=== PATIENT | female | born 1955 | race Caucasian/White ===

== ENCOUNTER 2017-05-25 12:27 | Outpatient (CLI) | payer OTHER | END 2017-05-25 17:00 | disposition home or self-care (01) | LOC: MAMO-SONO 12:27 | DX: Z12.31 Encounter for screening mammogram for malignant neoplasm of breast (principal); N60.19 Diffuse cystic mastopathy of unspecified breast ==

== ENCOUNTER 2018-05-24 12:04 | Outpatient (CLI) | payer OTHER | END 2018-05-24 12:11 | disposition home or self-care (01) | LOC: LAB 12:04 | DX: D64.0 Hereditary sideroblastic anemia (principal) ==

== ENCOUNTER 2019-04-24 13:07 | Outpatient (CLI) | payer OTHER | END 2019-04-24 13:16 | disposition home or self-care (01) | LOC: MAMO-SONO 13:07 | DX: Z12.31 Encounter for screening mammogram for malignant neoplasm of breast (principal); Z87.898 Personal history of other specified conditions; N60.11 Diffuse cystic mastopathy of right breast; N60.12 Diffuse cystic mastopathy of left breast ==

== ENCOUNTER 2021-06-26 10:46 | Outpatient (CLI) | payer OTHER | END 2021-06-26 11:04 | disposition home or self-care (01) | LOC: RAD 10:46 | PROVIDERS: ATTEND Family Medicine | DX: R31.21 Asymptomatic microscopic hematuria (principal); M54.6 Pain in thoracic spine ==

== ENCOUNTER 2021-07-16 07:10 | Outpatient (CLI) | payer OTHER ==
[~2021-07-16 07:10] MED LIST: DICLOFENAC POTA50 MG PO
== END 2021-07-16 07:24 | disposition home or self-care (01) ==
LOC: TOM 07:10
PROVIDERS: ATTEND Family Medicine
DX: D49.512 Neoplasm of unspecified behavior of left kidney (principal)

== ENCOUNTER 2022-02-25 14:41 | Outpatient (CLI) | payer OTHER | END 2022-02-25 14:52 | disposition home or self-care (01) | LOC: SONOGRAMA 14:41 | PROVIDERS: ATTEND Family Medicine | DX: D49.512 Neoplasm of unspecified behavior of left kidney (principal) ==

== ENCOUNTER 2022-03-30 11:40 | Outpatient (CLI) | payer OTHER | END 2022-03-30 11:49 | disposition home or self-care (01) | LOC: RAD 11:40 | PROVIDERS: ATTEND Family Medicine | DX: M41.9 Scoliosis, unspecified (principal); M62.838 Other muscle spasm ==

== ENCOUNTER 2022-07-08 10:35 | Outpatient (CLI) | payer OTHER | END 2022-07-08 11:33 | disposition home or self-care (01) | LOC: MAMO-SONO 10:35 | PROVIDERS: ATTEND Family Medicine | DX: N60.11 Diffuse cystic mastopathy of right breast (principal); N60.12 Diffuse cystic mastopathy of left breast ==

== ENCOUNTER 2022-07-08 13:07 | Outpatient (CLI) | payer OTHER | END 2022-07-08 13:08 | disposition home or self-care (01) | LOC: NUCLEAR 13:07 | PROVIDERS: ATTEND Family Medicine | DX: M85.80 Other specified disorders of bone density and structure, unspecified site (principal) ==

== ENCOUNTER 2023-01-31 07:11 | Outpatient (CLI) | payer OTHER | END 2023-01-31 07:25 | disposition home or self-care (01) | LOC: MRI 07:11 | PROVIDERS: ATTEND Family Medicine | DX: M54.14 Radiculopathy, thoracic region (principal); R13.12 Dysphagia, oropharyngeal phase; D49.512 Neoplasm of unspecified behavior of left kidney | CPT/HCPCS: 72147 ==

== ENCOUNTER 2023-01-31 08:05 | Outpatient (CLI) | payer OTHER ==
[2023-01-31 09:20] LABS: CREATININE SERUM 0.85 mg/dL (0.55-1.02)
== END 2023-01-31 08:22 | disposition home or self-care (01) ==
LOC: LAB 08:05
DX: M54.14 Radiculopathy, thoracic region (principal)

== ENCOUNTER 2023-12-10 10:22 | Outpatient (CLI) | payer OTHER | END 2023-12-10 10:30 | disposition home or self-care (01) | LOC: RAD 10:22 | PROVIDERS: ATTEND Family Medicine | DX: M54.50 Low back pain, unspecified (principal) ==

== ENCOUNTER → 2024-11-08 | Outpatient (CLI) | payer OTHER | END | disposition home or self-care (01) | LOC: NUCLEAR 10:18 | PROVIDERS: ATTEND Family Medicine | DX: I87.2 Venous insufficiency (chronic) (peripheral) (principal) ==

== ENCOUNTER 2024-11-14 14:37 | Outpatient (CLI) | payer OTHER | END 2024-11-14 14:42 | disposition home or self-care (01) | LOC: SONOGRAMA 14:37 | PROVIDERS: ATTEND Family Medicine | DX: R10.20 Pelvic and perineal pain unspecified side (principal) ==